=== PATIENT | female | born 1975 | race Caucasian/White ===

== ENCOUNTER 2019-07-07 10:30 | Emergency (ER) | payer MEDICARE ==
[~2019-07-07] VITALS: Ht 172.7 cm; Wt 147.7 kg
[2019-07-07 10:39] VITALS: Ht 172.7 cm; Wt 147.7 kg
[2019-07-07] MEDS ORDERED: EFFEXOR75 MG PO (10:41)
[2019-07-07] MEDS ORDERED: NEURONTIN 300300 MG PO (10:41)
[2019-07-07] MEDS ORDERED: BREO ELLIPTA 11 EACH INH (10:41)
[2019-07-07] MEDS ORDERED: SPIRIVA18 MCG INH (10:41)
[2019-07-07 11:48] LABS: ALBUMIN 3.2 g/dL (3.4-5.0); ALKALINE PHOSPHATASE 88 U/L (46-116); ALT (SGPT) 29 U/L (10-68); BILIRUBIN - TOTAL 0.16 mg/dL (0.2-1.3); CALC OSMOLALITY 278 mosm/kg (275-300); CALCIUM 9.1 mg/dL (8.5-10.1); CARBON DIOXIDE 27.5 mmol/L (21.0-32.0); CHLORIDE - SERUM 102 mmol/L (98-107); CREATININE - SERUM 0.9 mg/dL (0.6-1.3); GLUCOSE 143 mg/dL (74-106); POTASSIUM - SERUM 4.2 mmol/L (3.5-5.1); PROTEIN - SERUM 7.2 g/dL (6.4-8.2); SODIUM 138 mmol/L (136-145); UREA NITROGEN 14 mg/dL (7-18); eGFR NON AFRICAN AMERICAN 72 mL/min (90-120)
[2019-07-07 11:56] LABS: CKMB 2.1 U/L (0.0-3.6); CREATINE KINASE 123 UL (21-215); LIPASE 104 U/L (73-393); MAGNESIUM - SERUM 1.7 mg/dL (1.8-2.4)
[2019-07-07 12:00] LABS: TROPONIN-I < 0.017 ng/mL (0.000-0.060)
[2019-07-07 12:03] LABS: INR 0.95 (0.85-1.17); PROTIME 12.2 SECONDS (11.6-15.0)
[2019-07-07 12:04] LABS: APTT 29.9 SECONDS (22.8-39.4)
[2019-07-07 12:06] LABS: BASOPHILS 0.2 % (0-2); EOSINOPHILS 1.7 % (0-7); HEMATOCRIT 35.4 % (36.0-48.0); HEMOGLOBIN 11.8 g/dL (12-16); IMMATURE GRANULOCYTES 0.2 % (0-5); LYMPHOCYTES 25.4 % (15-50); MCHC 33.3 g/dL (31.0-37.0); MCV 83.9 fL (80.0-100.0); MEAN PLATELET VOLUME 9.4 fL (7.4-10.4); MONOCYTES 6.1 % (2-11); NEUTROPHILS 66.4 % (40-80); PLATELET COUNT 362 10x3/uL (130-400); RBC 4.22 10x6/uL (4.00-5.40); RDW 13.5 % (11.5-14.5); WBC 12.3 10x3/uL (4.8-10.8)
[2019-07-07] MEDS ORDERED: ZOFRAN ODT4 MG/UDTAB PO (13:37)
[2019-07-07] MEDS ORDERED: TYLENOL W/CODEI1 TAB PO (13:37)
[2019-07-07 14:02] LABS: APPEARANCE CLEAR (CLEAR); BILIRUBIN NEGATIVE (NEGATIVE); COLOR COLORLESS (YELLOW); GLUCOSE NEGATIVE (NEGATIVE); KETONE NEGATIVE (NEGATIVE); NITRITE NEGATIVE (NEGATIVE); PROTEIN NEGATIVE (NEGATIVE); UROBILINOGEN NORMAL (NORMAL)
[2019-07-07 14:11] VITALS: BP 142/57
== END 2019-07-07 14:10 | disposition home or self-care (01) ==
LOC: D.ER 10:30
PROVIDERS: Family Medicine
DX: K80.80 Other cholelithiasis without obstruction (principal); R10.13 Epigastric pain